=== PATIENT | male | born 1990 | race Caucasian/White ===

== ENCOUNTER → 2016-06-04 | Emergency (ER) | payer MEDICAID ==
[~2016-06-04] VITALS: Ht 167.6 cm; Wt 68.9 kg
[~2016-06-04] MED LIST: ACETAMINOPHEN-1 EAC1 ORAL; AMOXICILLIN500 MG ORAL; AUGMENTIN 875-1 EAC1 ORAL; CORTISPORIN EAR10 ML OTIC; IBUPROFEN600 MG ORAL; NKM; NORCO 5-325 TA1 EACH ORAL
[2016-06-04 23:18] VITALS: BP 127/85
--- NOTE | 2016-06-05 03:53 | Emergency Room Report ---
History of Present Illness General Chief Complaint: Earache Source: Patient Present Illness HPI 26-year-old male presents to ED for evaluation. States that starting today he developed right ear pain. Pain is throbbing, 8/10, nonradiating. Patient tried [id number] ear drops but states they did not help. Denies fevers or chills. Denies cough. Denies sick contacts or recent travel. No other aggravating or relieving factors. Denies any other associated symptoms Allergies: Coded Allergies: No Known Allergies (Unverified , 09/06/15) Patient History Past Medical History: none Past Surgical History: none Pertinent Family History: none Social History: Denies: alcohol use, drug use, smoking Immunizations: UTD Reviewed Nursing Documentation: PMH: Agreed, PSxH: Agreed Nursing Documentation-PMH Past Medical History: No Stated History Review of Systems All Other Systems: negative except mentioned in HPI Physical Exam Vital Signs Date Time Temp Pulse Resp B/P Pulse Ox O2 Delivery O2 Flow Rate FiO2 06/04/16 23:18 97.9 64 18 127/85 98 Room Air Sp02 EP Interpretation: reviewed, normal General Appearance: no apparent distress, alert, GCS 15, non-toxic Head: normocephalic Eyes: bilateral eye PERRL, bilateral eye normal inspection ENT: normal pharynx, other - R TM unremarkable. R ear canal swollen, erythematous Neck: full range of motion, supple/symm/no masses Respiratory: normal inspection Cardiovascular #1: normal inspection Gastrointestinal: normal inspection Rectal: deferred Genitourinary: no CVA tenderness Musculoskeletal: normal inspection Neurologic: alert, oriented x3, responsive, motor strength/tone normal, sensory intact, speech normal Psychiatric: normal inspection Skin: normal inspection Lymphatic: normal inspection Medical Decision Making Diagnostic Impression: Primary Impression: Otitis externa Qualified Codes: H60.501 - Unspecified acute noninfective otitis externa, right ear ER Course Hospital Course 26-year-old M presents to ED with pain R ear. Differential diagnoses include: TM perforation, otitis externa, otitis media Clinical course Patient placed on stretcher. After initial history, physical exam reveals a young male in no acute distress. R TM unremarkable, ear canal swollen, erythematous. consistent with otitis externa Diagnosis - otitis externa Stable and discharged to home with Rx cortisporin drops. Followup with PMD. Return to ED if symptoms recur or worsen Last Vital Signs Date Time Temp Pulse Resp B/P Pulse Ox O2 Delivery O2 Flow Rate FiO2 06/04/16 23:18 97.9 64 18 127/85 98 Room Air Status: improved Disposition: HOME, SELF-CARE Condition: Stable Scripts Neomycin/Polymyxin B Sulf/Hc* (CORTISPORIN EAR SOLUTION*) 10 Ml Solution 2 DROP OTIC FOUR TIMES A DAY for 10 Days, #1 EA Instill in affected ear as directed for 7 days Prov: MIRANDA RO M.D. 06/04/16 Referrals: NON PHYSICIAN (PCP) Patient Instructions: Otitis Externa, [id number] MIRANDA RO M.D. Jun 05, 2016 03:53
== END | disposition home or self-care (01) ==
LOC: EMR 23:10
DX: H60.501 Unspecified acute noninfective otitis externa, right ear (principal)
CPT/HCPCS: 99283

== ENCOUNTER 2017-12-17 23:09 | Emergency (ER) | payer MEDICAID ==
[~2017-12-17] VITALS: Ht 170.2 cm; Wt 69.4 kg
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
[2017-12-17 23:53] VITALS: BP 111/63
[2017-12-18] MEDS ORDERED: Augmentin 875mg Tab ORAL ONE (01:30)
[2017-12-18] MEDS ORDERED: AUGMENTIN 875-1 EAC1 ORAL (01:32)
[2017-12-18] MEDS ORDERED: IBUPROFEN600 MG ORAL (01:32)
[2017-12-18 01:40] VITALS: BP 108/65
[2017-12-18 02:20] VITALS: BP 108/65
--- NOTE | 2017-12-18 09:54 | Diagnostic Imaging Report ---
Indication: Trauma. Facial pain Technique: Continuous helical transaxial imaging of the maxillofacial structures obtained without intravenous contrast administration. Coronal 2-D reformats were also obtained. Study obtained in a Siemens sensation [address] Automatic Exposure Control was utilized. Total Dose length Product (DLP): 642.[address] Dose Index Volume (CTDIvol): 28.19 mGy Comparison: None Findings: There is a comminuted bilateral fracture of the nasal bone with evidence of laceration injury given the presence of a soft tissue air adjacent to the fracture especially on the left side. Some of the air the sex into the left aspect of the facial soft tissues anterior to the maxillary sinus. There is generalized soft tissue swelling involving the nose and the left facial region. No other fractures are identified. Paranasal sinuses are essentially clear. There is a small amount of mucosal thickening in the left maxillary sinus probably related to sinusitis. Mastoids are clear bilaterally. IMPRESSION: Acute comminuted nasal fracture as described above The CT scanner at [facility] is accredited by the [employer] and the scans are performed using dose optimization techniques as appropriate to a performed exam including Automatic Exposure control.
== END 2017-12-18 01:45 | disposition home or self-care (01) ==
LOC: EMR 23:50
DX: S01.21XA Laceration without foreign body of nose, initial encounter (principal); Y04.0XXA Assault by unarmed brawl or fight, initial encounter; Y93.89 Activity, other specified; Y92.831 Amusement park as the place of occurrence of the external cause; S02.2XXA Fracture of nasal bones, initial encounter for closed fracture
CPT/HCPCS: 70486; 99284

== ENCOUNTER 2019-11-01 09:33 | Emergency (ER) | payer MEDICAID ==
[~2019-11-01] VITALS: Ht 167.6 cm; Wt 70.3 kg
[2019-11-01 09:47] VITALS: BP 131/57
[2019-11-01] MEDS ORDERED: ONDANSETRON ODT4 MG BC (10:04)
--- NOTE | 2019-11-01 10:08 | Emergency Room Report ---
History of Present Illness General Chief Complaint: Flu Like Symptoms Source: Patient Present Illness HPI Disclaimer: Please note that this report is being documented using [employer] technology. This can lead to erroneous entry secondary to incorrect interpretation by the dictating instrument. HPI: 29-year-old male with no reported medical presents for evaluation of fever and stomachache. Symptoms present approximately 2 days. He reports low-grade fevers responding well to Tylenol as well as nausea and upper abdominal cramping and generalized headaches. Denies vomiting, diarrhea, dysuria, hematuria, chest pain, palpitations, shortness of breath, cough, sore throat, nasal congestion. No known sick contacts. Able to eat and drink at baseline. Came in for evaluation due to 2 persistent fevers though they are responding to NSAIDs. Headaches are also responding to Tylenol. Otherwise feeling well and at his baseline health. PMH: Denied PSH: Denied Allergies: Denied Social Hx: Denied drug or alcohol abuse Allergies: Coded Allergies: No Known Allergies (Unverified , 09/06/15) COVID-19 Screening Contact w/high risk pt: No Experienced COVID-19 symptoms?: Yes COVID-19 Testing performed [employer]: No Nursing Documentation-PMH Past Medical History: No Stated History Review of Systems All Other Systems: negative except mentioned in HPI Physical Exam Vital Signs Date Time Temp Pulse Resp B/P (MAP) Pulse Ox O2 Delivery O2 Flow Rate FiO2 11/01/19 09:38 100.4 95 20 131/57 (81) 95 Room Air 11/01/19 09:47 99 General: Awake and alert, no acute distress, borderline fever HEENT: NC/AT. EOMI. Cardiovascular: RRR. S1 and S2 normal. No murmur appreciated Resp: Normal work of breathing. No cough, wheezing or crackles appreciated Abdomen: Abdomen is soft, nondistended. Mild epigastric tenderness but no guarding, no rebound, no masses, negative Pang's. Otherwise abdomen is nontender. Skin: Intact. No abrasions, laceration or rash over the exposed skin MSK: Normal tone and bulk. Moving all extremities. No obvious deformity. Neuro: Awake and alert. Mentating appropriately. Medical Decision Making Diagnostic Impression: Primary Impression: Influenza-like symptoms ER Course Is a 29-year-old male presenting for 3 days febrile illness with abdominal cramping and headache. Most consistent with a viral syndrome. No respiratory symptoms reported. Able to eat and drink at baseline abdomen is benign on exam. He is well-appearing stable vital signs though borderline fever. He will be discharged with Zofran and continued Tylenol and ibuprofen for control of fevers and headaches. He will follow-up with his PMD. Discussed reasons to return to the emergency department. He understands and agrees with this treatment plan. Last Vital Signs Date Time Temp Pulse Resp B/P (MAP) Pulse Ox O2 Delivery O2 Flow Rate FiO2 11/01/19 09:47 99.1 81 18 131/57 99 Room Air 11/01/19 09:47 99 Disposition: HOME, SELF-CARE Condition: Stable Scripts Ondansetron Odt* (ZOFRAN ODT*) 4 Mg Tab.rapdis 4 MG BC EVERY 6 HOURS PRN for Nausea & Vomiting, #20 TAB 0 Refills Prov: Hayden Aguilar MD 11/01/19 Referrals: [facility], [facility] [place] [place] [facility] Departure Forms: Return to Work Return to Full Activity: Nov 03, 2019 Work Restrictions: None Patient Instructions: Viral Gastroenteritis, Adult Additional Instructions: Please follow-up with your primary care doctor in the next 1 to 3 days to discuss this emergency department visit and for reevaluation. If you have any new or worsening symptoms please return to the emergency department for reevaluation. Please note that this report is being documented using [employer] technology. This can lead to erroneous entry secondary to incorrect interpretation by the dictating instrument. Hayden Aguilar MD Nov 01, 2019 10:08
[2019-11-01 10:13] VITALS: BP 123/61
== END 2019-11-01 10:15 | disposition home or self-care (01) ==
LOC: EMR 10:01
DX: R50.9 Fever, unspecified (principal); R51 Headache; R10.10 Upper abdominal pain, unspecified; R11.0 Nausea
CPT/HCPCS: 99282